=== PATIENT | female | born 1990 ===

== ENCOUNTER 2017-06-02 19:18 | Emergency (ER) | payer MEDICAID ==
[2017-06-02 19:39] LABS: Urine Bilirubin Negative (NEGATIVE); Urine Blood Negative /ul (NEGATIVE); Urine Ketone Negative (NEGATIVE); Urine Nitrite Negative (NEGATIVE); Urine Protein Negative (NEGATIVE); Urine Specific Gravity 1.025 SP.GR. (1.005-1.010); Urine Urobilinogen Normal (NORMAL)
[2017-06-02 19:48] LABS: Urine Appearance Slightly Cloudy; Urine Bacteria TRACE; Urine Color Yellow; Urine RBC None Seen /hpf (0-5); Urine WBC 0-5 /hpf (0-5)
[2017-06-02 19:49] LABS: Urine Mucus TRACE
[2017-06-02 20:18] LABS: Hematocrit 41.3 % (37.0-47.0); Hemoglobin 13.8 gm/dL (12.5-16.0); Mean Cell Volume 87.9 fl (78-100); Mean Corpuscular Hemoglobin 29.4 pg (27-31); Mean Corpuscular Hgb Conc 33.4 g/dl (32-36); Mean Platelet Volume 8.8 fl (6.0-9.5); Neutrophil # 5.5 K/mm3 (1.3-6.0); Neutrophil % 65.3 % (42-75.0); Platelet Count 190 K/mm3 (150-450); Red Cell Distribution Width 12.7 % (11.5-14.0); White Blood Count 8.5 K/mm3 (4.0-10.5)
--- NOTE | 2017-06-02 20:18 | ERNOTE ---
Abdominal HPI - General Chief Complaint: Abdominal Pain Time Seen by Provider: 06/02/17 20:01 Source: patient Exam Limitations: no limitations - Immun/Allergies/Home Medications Immunizatons: IMMUNIZATION HX Immunizations Up to Date Yes History of Influenza Vaccine No Hx Pneumococcal Vaccination No Allergies/Adverse Reactions: Allergies tree nut Allergy (Verified 06/02/17 19:27) Home Medications: HOME MEDICATIONS Vit37/Iron/Folic Acid [[place] Chewable Tablet] 1 each PO DAILY [Last Taken Unknown] - History of Present Illness Narrative: Pt had onset of periumbilibcal to epigastric pain this am it was at times severe but improved with laying still. The pain moved to the RLQ for some time then dissipated and is now back to the mid upper abdomen Timing: intermittent Quality: moderate, aching Activities at Onset: none Modifying Factors - (Improves): Present: lying down Modifying Factors - (Worsens): Present: movement Associated Symptoms: Present: denies symptoms Review of Systems - Review of Systems Constitutional: Absent: recent illness, fever, chills EYE: Present: no symptoms reported ENT: Absent: nose congestion, nasal drainage Respiratory: Absent: cough Cardiology: Absent: chest pain Gastrointestinal/Abdominal: Present: See HPI. Absent: nausea, vomiting, constipation Genitourinary: Absent: frequency, pain, dysuria Musculoskeletal: Absent: back pain, muscle pain Skin: Absent: rash Neurological: Present: no symptoms reported Endocrine: Absent: excessive sweating, flushing Hematologic/Lymphatic: Absent: easy bruising, swollen glands Psych: Present: no symptoms reported - Patient's Past Medical History Patient History - Medical: No pertinent hx Patient History - Cardiac/Respiratory: Other Patient History - Cancer: No Hx of Cancer Patient History - Surgical Procedures: No surgical history Patient History - Other: None LMP (females 10-50): unknown - Social History Living Situations: home Psych History: No pertinent hx Smoking Status: Never smoker - Immunizations Immunizations Up to Date: Yes Hx Pneumococcal Vaccination: No History of Influenza Vaccine: No Physical Exam - Physical Exam General Appearance: Present: wd/wn, alert, no apparent distress Head Exam: Present: normal inspection, no evidence of injury Eye Exam: Normal inspection: bilateral Neck: Present: normal inspection, nontender, supple Respiratory: Present: no respiratory distress, no accessory muscle use Gastrointestinal/Abdominal: Present: normal bowel sounds, tenderness - mid upper abdomen and pain radiating to this point with RLQ palpation. Absent: distended, guarding, rebound Back Exam: Present: normal inspection, normal range of motion, no CVA tenderness , no vertebral tenderness Extremity Exam: Present: normal inspection, normal range of motion, no edema Neurological Exam: Present: alert, oriented, normal mood/affect, no motor/ sensory deficits Skin Exam: Present: normal color, warm/dry Lymphatic Exam: Present: no adenopathy ED Progress - Results and Orders Patient's Lab Results:: I have reviewed the patient's lab results. Results and Orders: Laboratory Tests 06/02/17 06/02/17 06/02/17 19:30 19:30 20:18 WBC 8.5 Hgb 13.8 Hct 41.3 Plt Count 190 Sodium Potassium Chloride Carbon Dioxide BUN Creatinine Random Glucose Calcium Total Bilirubin AST ALT Alkaline Phosphatase Total Protein Albumin Amylase Lipase Urine Color Yellow Urine Appearance Slightly cloudy Urine pH 6.0 Ur Specific [place] 1.025 Urine Protein Negative Urine Glucose (UA) Negative Urine Ketones Negative Urine Blood Negative Urine Nitrate Negative Urine Bilirubin Negative Urine Urobilinogen Normal Ur Leukocyte Esterase Negative Urine RBC None seen Urine WBC 0-5 Ur Epithelial Cells 0-5 Urine Bacteria Trace Urine Mucus Trace Urine Culture Comments No culture indicated Urine HCG, Qual Negative 06/02/17 20:18 WBC Hgb Hct Plt Count Sodium 144 H Potassium 3.5 Chloride 105 Carbon Dioxide 30.3 BUN 16 Creatinine 0.71 Random Glucose 61 L Calcium 8.8 Total Bilirubin 0.5 AST 9 ALT 25 Alkaline Phosphatase 77 Total Protein 7.7 Albumin 4.3 Amylase 26 Lipase 103 Urine Color Urine Appearance Urine pH Ur Specific [place] Urine Protein Urine Glucose (UA) Urine Ketones Urine Blood Urine Nitrate Urine Bilirubin Urine Urobilinogen Ur Leukocyte Esterase Urine RBC Urine WBC Ur Epithelial Cells Urine Bacteria Urine Mucus Urine Culture Comments Urine HCG, Qual - Vital Signs Patient's Vital Signs:: I have reviewed the patient's vital signs. Vital Signs: Vital Signs 06/02/17 19:22 Temperature 36.7 C Pulse Rate 104 H Respiratory 17 Rate Blood Pressure 132/64 O2 Sat by Pulse 99 Oximetry - X-Ray X-Ray #1 X-Ray: abdomen Interpretation: Interp. by me X-ray Comments: Moderate stool retention LUQ and RLQ. No evidence for obstruction - Progress/Reassessment Chief Complaint: Abdominal Pain Progress Note-Subjective: 06/02/17 20:57 discussed different OTC products that she could use to clear out the retained stool. Encouraged her to increase fiber or take fiber supplement in the future. Departure Clinical Impression: Constipation Qualifiers: Constipation type: slow transit constipation Qualified Code(s): K59.01 - Slow transit constipation - Departure Disposition: Home self-care Condition: Good Instructions: Constipation, Adult, [id number] Additional Instructions: Something like miralax taken 2-3 times a day will help clear out your bowel usually in 2-3 days. Milk of magnesia and similar products will usually begin the process in 6-12 hours. Magnesium citrate (half a bottle to start) will usually work in 3-6 hours. See your primary care provider if not getting results and you still have symptoms Referrals: Monet Stockton MD [Primary Care Provider] -
[2017-06-02 20:29] VITALS: BP 116/74
[2017-06-02 20:32] LABS: Albumin * 4.3 gm/dl (3.4-5.0); Anion Gap 12.2 mmol/L (6.8-13.8); BUN/Creatinine Ratio 22.5 (9.0-21.6); Bilirubin, Total 0.5 mg/dL (0.0-1.1); Ca. Corrected For Albumin 8.2 mg/dL (8.4-10.2); Calcium * 8.8 mg/dL (7.9-10.9); Carbon Dioxide 30.3 mmol/L (24-32.6); Potassium 3.5 mmol/L (3.4-4.6); Total Protein 7.7 gm/dL (6.2-8.2)
== END 2017-06-02 21:00 | disposition home or self-care (01) ==
LOC: ER 19:18
DX: K59.01 Slow transit constipation (principal)